=== PATIENT | male | born 1945 | race Caucasian/White ===

== ENCOUNTER 2020-02-27 14:06 | Emergency (ER) | payer OTHER, MEDICAID, SELFPAY ==
[~2020-02-27] VITALS: Ht 180.3 cm; Wt 108.9 kg
[2020-02-27] MEDS ORDERED: ACETAMINOPHEN EXTRA STRENGTH 500 MG TAB ONE (14:13)
[2020-02-27 14:15] VITALS: BP 143/64
[2020-02-27] MEDS ORDERED: ACETAMINOPHEN EXTRA STRENGTH 500 MG TAB PO ONE (14:35)
--- NOTE | 2020-02-27 14:39 | NUR ---
74 Y/O MALE BIB [facility] S/P STAFF AT [facility] REPORTING PT HAVING A FEVER OF 100.0. GCS 14 D/T DEMENTIA, NO DECLINE IN ORIENTATION REPORTED. RESP EVEN AND UNLABORED. LUNG SOUNDS DIMINISHED IN BILAT BASES. BOWEL SOUNDS NORMOACTIVE IN ALL QUADRANTS. PT DENIES ANY PAIN AT THIS TIME. VSS. OLD BRUISING NOTED IN BUE/BLE. PMH: HTN, DEMENTIA NKA
[2020-02-27 15:21] LABS: BASOPHILS % (AUTO) 0.3 % (0.0-2.0); EOSINOPHILS % (AUTO) 0.1 % (0.0-4.0); HEMOGLOBIN 14.8 g/dL (12.0-18.0); LYMPHOCYTES # (AUTO) 0.6 K/uL (2.0-11.5); LYMPHOCYTES % (AUTO) 5.9 % (20.5-51.1); MEAN CORPUSCULAR HEMOGLOBIN 30 pg (27-31); MEAN CORPUSCULAR HGB CONC 33 g/dL (33-37); MEAN CORPUSCULAR VOLUME 89.6 fL (80-94); MONOCYTES # (AUTO) 0.8 K/uL (0.8-1.0); MONOCYTES % (AUTO) 7.9 % (1.7-9.3); NEUTROPHILS # (AUTO) 8.7 K/uL (1.8-7.7); NEUTROPHILS % (AUTO) 85.8 % (42.2-75.2); PLATELET COUNT (AUTO) 153 K/uL (140-450); RED BLOOD CELL COUNT(AUTO) 5.02 MIL/uL (4.20-6.10); RED CELL DISTRIBUTION WIDTH 14.3 % (11.6-13.7); WHITE BLOOD COUNT (AUTO) 10.2 K/uL (4.8-10.8)
[2020-02-27 15:32] LABS: APPEARANCE,URINE CLOUDY (CLEAR); BILIRUBIN,URINE NEGATIVE (NEGATIVE); BLOOD, URINE 2+ (NEGATIVE); COLOR,URINE DARK YELLOW (YELLOW); LEUKOCYTE ESTERASE ,URINE 3+ (NEGATIVE); NITRITE, URINE POSITIVE (NEGATIVE); UGLUCOSE NEGATIVE (NEGATIVE)
--- NOTE | 2020-02-27 15:34 | NUR ---
FLU SWAB, RSV SWAB, COVID SWAB PERFORMED AT BEDSIDE. SAMPLES WALKED TO LAB
[2020-02-27 15:46] LABS: ALBUMIN 3.1 g/dL (3.4-5.0); ANION GAP 12.6 (8-16); ASPARTATE AMINOTRANSFERASE 11 U/L (15-37); CARBON DIOXIDE 29.3 mmol/L (21-32); CHLORIDE 101 mmol/L (98-107); CREATININE 1.3 mg/dL (0.6-1.3); GLUCOSE 124 mg/dL (74-106); POTASSIUM 3.9 mmol/L (3.5-5.1); SODIUM SERUM 139 mmol/L (136-145); TOTAL BILIRUBIN 0.8 mg/dL (0.0-1.0); UREA NITROGEN, BLOOD 18 mg/dL (7-18)
[2020-02-27 15:57] LABS: RBC,URINE 11-20 (MOD) /HPF (0-5)
[2020-02-27 15:58] LABS: WBC,URINE 20-60 /HPF (0-5)
[2020-02-27 16:02] LABS: C-REACTIVE PROTEIN QUANT 22.7 mg/dL (0.0-0.9)
[2020-02-27 16:05] LABS: LACTATE DEHYDROGENASE 194 U/L (85-227)
[2020-02-27 16:14] LABS: RSV NEGATIVE (NEGATIVE)
[2020-02-27] MEDS ORDERED: cefTRIAXone 1,000 MG VIAL ONE (16:34)
[2020-02-27 17:30] VITALS: BP 130/78
== END 2020-02-27 17:29 | disposition home or self-care (01) ==
LOC: MED 14:06 → EEVIPCON 14:06 → MED 17:29
DX: N39.0 Urinary tract infection, site not specified (principal); F03.90 Unspecified dementia, unspecified severity, without behavioral disturbance, psychotic disturbance, mood disturbance, and anxiety; I10 Essential (primary) hypertension; Z20.828 Contact with and (suspected) exposure to other viral communicable diseases
CPT/HCPCS: 36415; 71045; 80053; 81001; 82550; 82728; 83605; 83615; 83880; 84484; 85025; 86140; 87040; 87086; 87186; 87420; 87804; 99284; C9803; J0696; U0003